=== PATIENT | female | born 1945 | race Caucasian/White ===

== ENCOUNTER 2017-05-16 14:38 | Emergency (ER) | payer MEDICARE, OTHER ==
[~2017-05-16] VITALS: Ht 154.9 cm; Wt 66.0 kg
[~2017-05-16 14:38] MED LIST: AMLO10TA2 PO; FLUO-1 PO; LEVO100T63 PO
[2017-05-16 14:59] VITALS: BP 138/66; PULSE 68; RESP 16; TEMP 98.1; O2SAT 97
[2017-05-16] MEDS ORDERED: CALCTAB94 PO (15:41)
[2017-05-16] MEDS ORDERED: VITA1000 PO (15:41)
--- NOTE | 2017-05-16 15:41 | RADRPT ---
EXAM DATE/TIME: 05/16/2017 15:21 [place] COMPARISON: No previous studies available for comparison. INDICATIONS : Left leg pain. MEDICAL HISTORY : Thyroid disease. Cancer. Hypertension. SURGICAL HISTORY : Thyroidectomy. ENCOUNTER: Initial ACUITY: 4 - 6 days PAIN SCORE: 2/10 LOCATION: Left leg. TECHNIQUE: Venous ultrasound of the leg was performed from the inguinal ligament to the proximal calf. Real-ezra e, color Doppler and spectral tracing, compression and augmentation techniques were used. FINDINGS: There is normal compressibility of the deep venous system from the inguinal region to the proximal ca lf. No echogenic clot is seen in the lumen of the common femoral, femoral, popliteal, and posterior tibial veins. There is a normal response of the venous system to proximal and distal augmentation an d respiration. CONCLUSION: 1. No evidence of deep venous thrombosis. Dalton Street MD on May 16, 2017 at 15:40 Board Certified Radiologist. This report was verified electronically.
--- NOTE | 2017-05-16 15:41 | PD ---
Physical Exam Date Seen by Provider: May 16, 2017 Time Seen by Provider: 15:40 Narrative 71-year-old female previously seen at [facility] the ED, for question of possible DVT in the left lower leg. Patient was evaluated there and found to have a positive d-dimer without respiratory symptoms of any kind. Patient was sent here for ultrasound of the left lower extremity to rule out DVT. Patient denies swelling to the left lower leg. She has no known drug allergies. Data Data Last Documented VS Vital Signs Date Time Temp Pulse Resp B/P (MAP) Pulse Ox O2 Delivery O2 Flow Rate FiO2 05/16/17 14:59 98.1 68 16 138/66 (90) 97 Orders Orders Us Leg Venous Doppler (05/16/17 14:45) MDM Medical Record Reviewed: Yes Supervised Visit with BINTA: Yes Differential Diagnosis Left lower leg pain. Possible DVT. Muscle skeletal pain. History of positive d-dimer. Narrative Course Ultrasound of the left lower leg was performed showing: FINDINGS: There is normal compressibility of the deep venous system from the inguinal region to the proximal calf. No echogenic clot is seen in the lumen of the common femoral, femoral, popliteal, and posterior tibial veins. There is a normal response of the venous system to proximal and distal augmentation and respiration. Findings were discussed with the patient who feels that her symptoms are more related to her activity level. She does report a feeling of a "trick knee" about a week ago which improved with some ibuprofen. Patient is felt to have osteoarthritis in the left knee. Patient will be treated empirically with ibuprofen 600 mg 3 times daily with meals #30. Patient can take Tylenol and ice the area as well. Recommend proper foot wear as discussed. Patient to follow with primary care physician or orthopedist if symptoms persist or worsen as discussed. Diagnosis Primary Impression: Arthritis of left knee Referrals: Orthopedist Primary Care Physician Patient Instructions: Arthritis (ED), General Instructions Additional Instruction: Ultrasound of the left lower leg was performed showing: FINDINGS: There is normal compressibility of the deep venous system from the inguinal region to the proximal calf. No echogenic clot is seen in the lumen of the common femoral, femoral, popliteal, and posterior tibial veins. There is a normal response of the venous system to proximal and distal augmentation and respiration. Findings were discussed with the patient who feels that her symptoms are more related to her activity level. She does report a feeling of a "trick knee" about a week ago which improved with some ibuprofen. Patient is felt to have osteoarthritis in the left knee. Patient will be treated empirically with ibuprofen 600 mg 3 times daily with meals #30. Patient can take Tylenol and ice the area as well. Recommend proper foot wear as discussed. Patient to follow with primary care physician or orthopedist if symptoms persist or worsen as discussed. Med/Other Pt SpecificInfo: Prescription(s) given Disposition: 01 DISCHARGE HOME Condition: Stable Alexey Hawthorne May 16, 2017 15:41
[2017-05-16] MEDS ORDERED: IBUP-232 PO (15:55)
== END 2017-05-16 16:19 | disposition home or self-care (01) ==
LOC: NEPD 14:38
DX: M17.12 Unilateral primary osteoarthritis, left knee (principal)
CPT/HCPCS: 93971